=== PATIENT | male | born 1965 | race African-American/Black ===

== ENCOUNTER 2024-06-14 07:17 | Outpatient (CLI) | payer OTHER ==
[~2024-06-14] VITALS: Ht 175.3 cm; Wt 89.4 kg
[2024-06-14] MEDS: albuterol 2.5 MG/3 ML nebule NEB ONE (07:50)
[2024-06-14 07:52] VITALS: PULSE 63; RESP 18; O2SAT 98
[2024-06-14 08:04] VITALS: PULSE 61; RESP 16
[2024-06-14 08:44] LABS: BILIRUBIN,URINE NEGATIVE (Neg); CLARITY,URINE CLEAR (Clear); COLOR,URINE YELLOW (Yellow); GLUCOSE, URINE NEGATIVE (Neg); KETONES,URINE NEGATIVE (Neg); LEUKOCYTE ESTERASE ,URINE NEGATIVE (Neg); NITRITES, URINE NEGATIVE (Neg); OCCULT BLOOD,URINE NEGATIVE (Neg); PROTEIN,URINE NEGATIVE (Neg); UROBILINOGEN,URINE 0.2 E.U/dL (0.2-1.0)
[2024-06-14 08:53] LABS: UA COLLECTION TYPE CLN CATCH MIDSTREAM
[2024-06-14 09:34] LABS: ALANINE AMINOTRANSFERASE 28 U/L (12-78); ALBUMIN 3.8 G/DL (3.4-5.0); ALKALINE PHOSPHATASE 77 IU/L (46-116); ANION GAP 10 (8-16); ASPARTATE AMINO TRANSFERASE 28 U/L (10-37); BILIRUBIN,TOTAL 0.5 MG/DL (0.1-1.0); BLOOD UREA NITROGEN 19 MG/DL (7-18); BUN/CREATININE RATIO 7.9 (10.0-20.0); CALCIUM 9.9 MG/DL (8.5-10.1); CHLORIDE 103 MMOL/L (99-107); CREATININE 2.39 MG/DL (0.60-1.10); GLUCOSE 100 MG/DL (70-104); POTASSIUM 3.5 MMOL/L (3.5-5.1); SODIUM 140 MMOL/L (135-145); THYROID STIMULATING HORMONE 3.01 ulU/ml (0.34-4.50); TOTAL CARBON DIOXIDE 27.4 MMOL/L (24-32); TOTAL PROTEIN 7.8 G/DL (6.4-8.2); eCRCL 33 ML/MIN; eGFR 34 ML/MIN
[2024-06-15 11:10] LABS: THIIODOTHRONINE, FREE, SERUM 3.1 pg/mL (2.0-4.4); THYROXINE (T4) 8.2 ug/dL (4.5-12.0)
== END 2024-06-14 23:59 | disposition home or self-care (01) ==
LOC: RT 07:17
PROVIDERS: ATTEND Chiropractor
DX: R06.02 Shortness of breath (principal); N18.9 Chronic kidney disease, unspecified
CPT/HCPCS: 36415; 80053; 81003; 84436; 84443; 84481; 94060; 94760